=== PATIENT | male | born 1970 | race Caucasian/White ===

== ENCOUNTER 2018-05-23 03:26 | Observation (INO) ==
[2018-05-23 05:24] LABS: Basophils # 0.1 10*3/uL (0.0-0.2); Basophils % 0.6 % (0.0-0.8); Eosinophils # 0.4 10*3/uL (0.0-0.87); Eosinophils % 4.4 % (0.00-10.9); Hematocrit 38.4 VOL% (42.0-52.0); Hemoglobin 12.7 GM/DL (14.0-18.0); Immature Granulocytes % 0.5 %; Immature Granulocytes Absolute 0.04 #; Lymphocytes # 1.7 10*3/uL (1.4-4.0); Lymphocytes % 20.8 % (21.2-54.2); Mean Corpuscular HGB Conc 33.1 GM/DL (32-36); Mean Corpuscular Hemoglobin 29 PG (27-34); Mean Corpuscular Volume 87.5 FL (87-102); Mean Platelet Volume 10.5 FL (9.6-12.0); Monocytes # 0.6 10*3/uL (0.11-0.8); Monocytes % 7.1 % (1.7-12.7); Neutrophils # 5.5 10*3/uL (1.4-7.4); Neutrophils % 66.6 % (38.7-73.9); Platelet Count 296 T/CUMM (130-400); Red Blood Count 4.39 MC/CUMM (3.8-5.5); Red Cell Distribution Width 13.7 % (9.3-17.3); White Blood Count 8.2 T/CUMM (4-12)
[2018-05-23 05:42] LABS: Hypochromasia 1+; Ovalocytes Slight; Platelet Estimate Adequate
[2018-05-23 06:42] LABS: Alanine Aminotransferase 24 U/L (16-61); Albumin 3.1 G/DL (3.4-5.0); Alkaline Phosphatase 73 U/L (45-117); Aspartate Amino Transferase 17 U/L (0-37); Bilirubin,Total < 0.39 MG/DL (0.2-1.0); Blood Urea Nitrogen 12 MG/DL (7-18); Glucose 92 MG/DL (74-106); Osmolality,Calculated 278.4 MOS/KG (273-304); Potassium 3.7 MMOL/L (3.5-5.1); Sodium 140 MMOL/L (136-145); Total Protein 7.1 G/DL (6.4-8.3)
[2018-05-24 17:02] VITALS: BP 127/80
== END 2018-05-24 17:20 | disposition left against medical advice (07) ==
LOC: N.EDINP 03:26 → N.ED 03:26 → INTOOBSV 09:23 → N.SDSINP 09:23 → N.3E 11:32
PROVIDERS: ADMIT Surgery; ATTEND Surgery

== ENCOUNTER 2021-05-13 17:49 | Inpatient (IN) ==
[2021-05-13] MEDS ORDERED: SODIUM CHLORIDE 0.9% 1,000 ML IV STA (20:18)
[2021-05-13 20:41] LABS: Basophils % 0.5 % (0.0-0.8); Eosinophils % 0.5 % (0.00-10.9); Hematocrit 44.1 VOL% (42.0-52.0); Hemoglobin 14.2 GM/DL (14.0-18.0); Immature Granulocytes % 0.4 %; Immature Granulocytes Absolute 0.02 #; Lymphocytes % 18.6 % (21.2-54.2); Mean Corpuscular HGB Conc 32.2 GM/DL (32-36); Mean Corpuscular Volume 86.8 FL (87-102); Mean Platelet Volume 10.3 FL (9.6-12.0); Monocytes % 9.3 % (1.7-12.7); Neutrophils % 70.7 % (38.7-73.9); Platelet Count 302 T/CUMM (130-400); Red Blood Count 5.08 MC/CUMM (3.8-5.5); White Blood Count 5.5 T/CUMM (4-12)
[2021-05-13 21:04] LABS: Bilirubin,Urine Small mg/dL (Negative); Blood, Urine Negative (Negative); Glucose,Urine (UA) Negative (Negative); Ketones,Urine Negative (Negative); Mucus,Urine Occasional /LPF (Occasional); Nitrite,Urine Negative (Negative); Protein,Urine Negative; RBC,Urine 3 /HPF (0-4); Urine Appearance CLEAR (Clear); Urine Color Amber (Yellow); Urine Specific Gravity 1.017 (1.001-1.035)
[2021-05-13 21:15] LABS: Albumin 2.9 G/DL (3.4-5.0); Calcium 8.7 MG/DL (8.5-10.1); Osmolality,Calculated 262.5 MOS/KG (273-304); Potassium 4.3 MMOL/L (3.5-5.1); Total Protein 6.6 G/DL (6.4-8.2)
[2021-05-13] MEDS ORDERED: ONDANSETRON 4 MG/2 ML VIAL IV ONE (21:25)
[2021-05-13] MEDS ORDERED: MORPHINE 2 MG/1 ML SYRINGE IV STA (21:25)
[2021-05-13 22:05] LABS: Reactive Lymphocytes 1+
[2021-05-13 22:06] LABS: Burr Cells 1+; Platelet Estimate Normal
[2021-05-13 22:07] LABS: Ovalocytes 1+
[2021-05-13] MEDS ORDERED: GLUCAGON 1 MG VIAL IM PRN (22:50)
[2021-05-13] MEDS ORDERED: guaiFENesin/DM ER 600-30 MG TABLET PO PRN (22:50)
[2021-05-13] MEDS ORDERED: ZALEPLON 5 MG CAPSULE PO PRN (22:50)
[2021-05-13] MEDS ORDERED: hydrALAZINE 20 MG/1 ML VIAL IV PRN (22:50)
[2021-05-13] MEDS ORDERED: diphenhydrAMINE CAP 25 MG CAPSULE PO PRN (22:50)
[2021-05-13] MEDS ORDERED: ONDANSETRON 4 MG/2 ML VIAL IV PRN (22:50)
[2021-05-13] MEDS ORDERED: NICOTINE 21 MG/24 HR PATCH TRANSDERM PRN (22:50)
[2021-05-13] MEDS ORDERED: DEXTROSE 50% 25 GM/50 ML VIAL IV PRN (22:50)
[2021-05-13] MEDS ORDERED: SODIUM CHLORIDE 0.9% 1,000 ML IV SCH (23:00)
[2021-05-14] MEDS: MORPHINE 2 MG/1 ML SYRINGE IV PRN ×4 (05:32→20:03)
[2021-05-14 05:44] LABS: Basophils % 0.5 % (0.0-0.8); Eosinophils % 0.3 % (0.00-10.9); Hematocrit 43.9 VOL% (42.0-52.0); Hemoglobin 14.2 GM/DL (14.0-18.0); Immature Granulocytes % 0.5 %; Immature Granulocytes Absolute 0.03 #; Lymphocytes # 1.3 10*3/uL (1.4-4.0); Lymphocytes % 20.6 % (21.2-54.2); Mean Corpuscular HGB Conc 32.3 GM/DL (32-36); Mean Corpuscular Volume 86.9 FL (87-102); Mean Platelet Volume 11.1 FL (9.6-12.0); Monocytes % 8.9 % (1.7-12.7); Neutrophils % 69.2 % (38.7-73.9); Platelet Count 313 T/CUMM (130-400); Red Blood Count 5.05 MC/CUMM (3.8-5.5); Red Cell Distribution Width 14.2 % (9.3-17.3); White Blood Count 6.1 T/CUMM (4-12)
[2021-05-14 06:09] LABS: Anisocytosis 1+; Burr Cells 1+; Platelet Estimate Normal
[2021-05-14 06:10] LABS: Spherocytes Few
[2021-05-14 06:12] LABS: Calcium 8.5 MG/DL (8.5-10.1); Osmolality,Calculated 261.5 MOS/KG (273-304); Potassium 4.3 MMOL/L (3.5-5.1)
[2021-05-14 06:31] LABS: Albumin 2.7 G/DL (3.4-5.0); Bilirubin,Direct 3.87 MG/DL (0.0-0.20); Bilirubin,Indirect 1.1 MG/DL (0.0-1.0); Total Protein 6.2 G/DL (6.4-8.2)
[2021-05-14 07:10] LABS: Hepatitis B Core IgM Quant 0.08 Index; Hepatitis B Surface Ag Quant < 0.10 Index; Hepatitis B Surface Ag Result Non-Reactive (NonReactive); Hepatitis C Virus Ab Quant > 11.00 Index; Hepatitis C Virus Ab Result Reactive (NonReactive)
[2021-05-14] MEDS: BISACODYL 5 MG TABLET PO SCH (09:17)
[2021-05-14] MEDS: PANTOPRAZOLE 40 MG TABLET PO SCH (09:18)
[2021-05-14] MEDS: HEPARIN 5,000 UNIT/1 ML VIAL SUBCUT SCH ×2 (09:18→20:04)
[2021-05-14] MEDS: DEXTROSE 5% NACL 0.45% 1,000 ML IV SCH (09:24)
[2021-05-15] MEDS: MORPHINE 2 MG/1 ML SYRINGE IV PRN ×4 (05:48→23:20)
[2021-05-15] MEDS: DEXTROSE 5% NACL 0.45% 1,000 ML IV SCH ×2 (07:58→11:10)
[2021-05-15 08:34] LABS: INR 1.8; PT Patient Result 19.5 SECS (10.5-12.0); Partial Thromboplastin Time 48.5 SECS (23.9-33.8)
[2021-05-15] MEDS: HEPARIN 5,000 UNIT/1 ML VIAL SUBCUT SCH (08:54)
[2021-05-15] MEDS: BISACODYL 5 MG TABLET PO SCH (08:54)
[2021-05-15] MEDS: PANTOPRAZOLE 40 MG TABLET PO SCH (08:54)
[2021-05-15 09:00] LABS: Albumin 2.4 G/DL (3.4-5.0); Bilirubin,Total 5.3 MG/DL (0.20-1.00); Calcium 8.2 MG/DL (8.5-10.1); Osmolality,Calculated 261.5 MOS/KG (273-304); Potassium 4.1 MMOL/L (3.5-5.1); Total Protein 5.8 G/DL (6.4-8.2)
[2021-05-15] MEDS: CIPROFLOXACIN INJ 400 MG/200 ML PREMIX IV SCH (14:59)
[2021-05-15] MEDS: cefTRIAXone 1,000 MG in SODIUM CHLORIDE 0.9% 100 ML IV SCH (17:18)
[2021-05-15] MEDS: KETOROLAC 10 MG TABLET PO PRN (19:31)
[2021-05-15 21:05] LABS: Blood, Urine Negative (Negative); Glucose,Urine (UA) Negative (Negative); Ketones,Urine Negative (Negative); Mucus,Urine Occasional /LPF (Occasional); Nitrite,Urine Negative (Negative); Protein,Urine Negative; RBC,Urine 2 /HPF (0-4); Squamous Epithelial Cell,Urine Occasional /HPF (0-10); Urine Appearance CLEAR (Clear); Urine Color Amber (Yellow); Urine Specific Gravity 1.012 (1.001-1.035)
[2021-05-15 21:06] LABS: Bilirubin,Urine Moderate mg/dL (Negative)
[2021-05-15 21:18] LABS: Barbiturates Screen,Urine Negative (Negative); Benzodiazepines Screen,Urine Negative (Negative); Cannabinoid Screen,Urine Positive (Negative); Opiate Screen,Urine Positive (Negative); Phencyclidine Screen,Urine Negative (Negative)
[2021-05-16] MEDS: DEXTROSE 5% NACL 0.45% 1,000 ML IV SCH ×2 (01:14→20:28)
[2021-05-16] MEDS: CIPROFLOXACIN INJ 400 MG/200 ML PREMIX IV SCH ×2 (01:33→14:35)
[2021-05-16] MEDS: MORPHINE 2 MG/1 ML SYRINGE IV PRN ×2 (06:29→10:49)
[2021-05-16 07:10] LABS: Albumin 2.3 G/DL (3.4-5.0); Bilirubin,Total 6.2 MG/DL (0.20-1.00); Calcium 8.3 MG/DL (8.5-10.1); Osmolality,Calculated 260.5 MOS/KG (273-304); Potassium 4.1 MMOL/L (3.5-5.1); Total Protein 5.6 G/DL (6.4-8.2)
[2021-05-16] MEDS: BISACODYL 5 MG TABLET PO SCH (09:19)
[2021-05-16] MEDS: PANTOPRAZOLE 40 MG TABLET PO SCH (09:19)
[2021-05-16] MEDS: KETOROLAC 10 MG TABLET PO PRN (09:23)
[2021-05-16] MEDS ORDERED: MAGNESIUM HYDROXIDE SUSP 30 ML UDCUP PO ONE (11:25)
[2021-05-16] MEDS: cefTRIAXone 1,000 MG in SODIUM CHLORIDE 0.9% 100 ML IV SCH (16:58)
[2021-05-17] MEDS: CIPROFLOXACIN INJ 400 MG/200 ML PREMIX IV SCH (02:00)
[2021-05-17 06:51] LABS: Albumin 2.1 G/DL (3.4-5.0); Bilirubin,Total 7.1 MG/DL (0.20-1.00); Calcium 8.1 MG/DL (8.5-10.1); Potassium 4.5 MMOL/L (3.5-5.1); Total Protein 5.5 G/DL (6.4-8.2)
[2021-05-17] MEDS: DEXTROSE 5% NACL 0.45% 1,000 ML IV SCH (07:10)
[2021-05-17] MEDS: BISACODYL 5 MG TABLET PO SCH (11:06)
[2021-05-17] MEDS: PANTOPRAZOLE 40 MG TABLET PO SCH (11:06)
[2021-05-17 12:20] VITALS: BP 98/57
[2021-05-17] MEDS ORDERED: cephALEXin 500 MG CAPSULE PO SCH (21:00)
[2021-05-17] MEDS ORDERED: TAMSULOSIN 0.4 MG CAPSULE PO SCH (21:00)
== END 2021-05-17 12:40 | disposition home or self-care (01) | DRG 441 ==
LOC: N.ED 17:49 → N.EDINP 22:50 → SUATTDRO 22:50 → N.EDINP 05-14 01:26 → N.3E 05-14 01:34
PROVIDERS: ADMIT Internal Medicine; ATTEND Hospitalist